=== PATIENT | female | born 1965 | race Caucasian/White ===

== ENCOUNTER 2020-04-05 18:29 | Emergency (ER) | payer MEDICAID, OTHER ==
[~2020-04-05] VITALS: Ht 160 cm; Wt 60.0 kg
--- NOTE | 2020-04-05 18:52 | ED Psychosocial ---
General Chief Complaint: Suicidal Ideation Risk Stated Complaint: SUICIDAL IDEATION Source: patient (GIVES CONVOLUTED INFORMATION) History of Present Illness Date Seen by Provider: Apr 05, 2020 Time Seen by Provider: 18:35 Initial Comments PT ARRIVES VIA EMS PT IS FROM [place] AND IS HOMELESS, ARRIVES WITH A "SERVICE DOG" "EMOTIONAL SUPPORT DOG" PT STATES SHE IS HAVING SUICIDAL THOUGHTS TODAY--"BECAUSE SHE DOESN'T HAVE A PLACE TO STAY BECAUSE OF THE DOG " THOUGHT ABOUT TAKING SOME HEART PILLS AND GOING TO SLEEP"--DENIES ANY ACTUAL ATTEMPT PT HAS NOT TAKEN ANY OF HER MEDICATIONS FOR THE LAST COUPLE OF DAYS--GIVES CONVOLUTED STORY / GIVES NO ACTUAL EXPLANATION TO WHY SHE HAS NOT TAKEN ANY OF HER MEDICATIONS STATES SHE TAKES CARVEDILOL, ENALAPRIL, A STATIN, AND HYDROXYZINE STATES SHE IS "HOMELESS" WAS IN THE [facility] IN [place] FROM FEB 08- MAR 26. INITIALLY STATES SHE IS HOMELESS, THEN STATES THAT THERE HAS BEEN AN APARTMENT FOR HER IN [place] SINCE THIS PAST Wednesday04/01/20, BUT STATES "COULDN'T GET A RIDE THERE" IS UNCLEAR HOW LONG SHE HAS BEEN HERE IN [place], OR WHY SHE IS HERE, WHERE SHE HAS BEEN STAYING AND HOW SHE GOT HERE. --GIVES VERY CONVOLUTED STORY AND DOES NOT GIVE ANY ACTUAL EXPLANATION PT LATER TOLD RN THAT SHE HAD BEEN STAYING WITH SOMEONE HERE IN [place] "BUT WAS ONLY SUPPOSED TO BE HERE FOR ONE DAY" AND TODAY THEY TOLD HER THAT SHE COULDN'T STAY THERE ANY LONGER, BECAUSE OF HER DOG PT DENIES ANY PRIOR PSYCHIATRIC ADMITS, BUT ADMITS TO HISTORY OF DEPRESSION AND ANXIETY, BUT STATES SHE HAS NOT SEEN A PSYCHIATRIST IN OVER A YEAR. PCP: [facility] [place] Allergies and Home Medications Patient Home Medication List Home Medication List Reviewed: Yes Review of Systems Constitutional: no symptoms reported Respiratory: no symptoms reported Cardiovascular: no symptoms reported Gastrointestinal: no symptoms reported Genitourinary: no symptoms reported Control/STD Prophylaxis: Other (HYST/BSO) Musculoskeletal: no symptoms reported Skin: no symptoms reported Psychiatric/Neurological: See HPI Past Hdfwlgp-Knwsqs-Imnxmx Hx Past Med/Social Hx: Reviewed and Corrections made Patient Social History Alcohol Use: Occasionally Uses Recreational Drug Use: Yes ("ALL OF THEM"-METH, COCAINE, THC, HEROIN, OTHERS. DENIES IV USE) Drug of Choice: "ALL OF THEM"-METH, COCAINE, HEROIN, THC, OTHERS. 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 oz. 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 ADVISED PT MULTIPLE TIMES THAT THE DOG WOULD NOT BE ALLOWED TO GO WITH HER TO ANY FACILITY, IT IS NOT A LEGALLY REGISTERED SERVICE DOG. ADVISED PT THAT [facility] WILL BE CONTACTED TO TAKE CARE OF HER DOG WHILE SHE IS HOSPITALIZED. PT IS IN AGREEMENT WITH THIS. PT SLEPT THROUGH MOST OF ER STAY Initial ECG Impression Date: Apr 05, 2020 Initial ECG Impression Time: 18:38 Initial ECG Rate: 94 Initial ECG Rhythm: Normal Sinus Initial ECG Impression: Atrial Fibrillation w/RVR Departure Communication (Admissions) 1909--CALLED [facility]--NO BEDS AVAILABLE 1910--CALLED [facility]-NO BEDS IN [place] OR [place] 1911--CALLED [facility] IN [place]--UNSURE IF THEY HAVE ANY BEDS, THEY WILL CALL BACK 1913--CALLED [facility] IN [place]--MESSAGE LEFT ON MACHINE. 1915--CALLED [facility]--UNSURE IF THEY HAVE BEDS, THEY WILL CALL BACK 1921--[facility] CALLED BACK, AND THEY DO HAVE FEMALE BED AVAILABLE. WILL FAX PT'S INFORMATION WHEN ALL LAB RESULTS ARE BACK. 2029--HAVE SENT ALL PT'S INFORMATION TO [facility] AND VERIFIED RECEIPT OF ALL INFORMATION. 2151--CALLED [facility] FOR UPDATE, THEY NOW REPORT THAT THEY HAVE NOT RECEIVED ANY OF PT'S INFORMATION. RE-CONFIRMED THEIR FAX #, AND WILL RE-FAX ALL OF PT'S INFORMATION. THEY HAVE CONFIRMED THAT THEY STILL HAVE BEDS AVAILABLE. 2204--[facility] CALLED, THEY HAVE NOT RECEIVED ANYTHING. ALL PT'S INFO RMATION RE-FAXED FOR THE 3RD TIME. 2303--[facility] HAS CONFIRMED THAT THEY HAVE RECEIVED ALL REQUIRED PAPERWORK, HAVE NOT REVIEWED IT YET. 2344--[facility] CALLED BACK. THEY CANNOT ACCEPT PT NOW, THEY NO LONGER HAVE ANY AVAILABLE BEDS / ARE NOW FULL. 234--CALLED [facility], THEY WILL CALL BACK FOR BED AVAILABILITY. 2351--CALLED [facility], NUMBER LEFT ON PAGER. 0035--CALLED [facility] IN . HAVE BEDS, BUT WILL NOT ACCEPT PT UNLESS THEY HAVE A NEGATIVE COVID-19 PCR/ SEND OUT TEST. THEY DO NOT ACCEPT RAPID COVID-19 ANTIGEN TESTS. THEREFORE THEY CANNOT ACCEPT PT. 0145--CALLED [facility] IN [place]. THEY HAVE A BED. WILL FAX ALL PT'S INFORMATION. 025--[facility] STAFF IS NOW ON PHONE WITH PT. 0336--[facility] CALLED BACK. THEY HAVE ACCEPTED THE PATIENT, PT HAS BEEN ACCEPTED BY DR. BERMAN. 337--[facility], CONTACTED FOR TRANSPORT. HE WILL BE HERE AT 0700. Impression Primary Impression: Passive suicidal ideations Additional Impressions: Illicit drug use Methamphetamine use Disposition: 65 XFER TO PSYCH HOSP/UNIT Condition: Stable Transfer Transfer Reason: Exceeds level of care Transfer Facility: [facility] Method of Transfer: Private Vehicle ([facility]ing [facility], [facility]) Departure-Patient Inst. Patient Instructions: [facility] MEGHAN JACOME DO Apr 05, 2020 18:51
[2020-04-05 19:10] LABS: BILIRUBIN,URINE NEGATIVE (NEGATIVE); CLARITY,URINE CLEAR; COLOR,URINE YELLOW; GLUCOSE, URINE (UA) NEGATIVE (NEGATIVE); KETONES,URINE NEGATIVE (NEGATIVE); LEUKOCYTE ESTERASE ,URINE NEGATIVE (NEGATIVE); NITRITE,URINE NEGATIVE (NEGATIVE); PH,URINE 5.5 (5-9); PROTEIN,URINE TRACE (NEGATIVE)
[2020-04-05 19:18] LABS: BASOPHILS # (AUTO) 0.1 10^3/uL (0.0-0.1); BASOPHILS % (AUTO) 1 % (0-10); EOSINOPHILS # (AUTO) 0.1 10^3/uL (0.0-0.3); EOSINOPHILS % (AUTO) 1 % (0-10); HEMATOCRIT 43 % (35-52); HEMOGLOBIN 14.2 g/dL (11.5-16.0); LYMPHOCYTES # (AUTO) 2.6 10^3/uL (1.0-4.0); LYMPHOCYTES % (AUTO) 24 % (12-44); MEAN CORPUSCULAR HEMOGLOBIN 31 pg (25-34); MEAN CORPUSCULAR HGB CONC 33 g/dL (32-36); MEAN CORPUSCULAR VOLUME 95 fL (80-99); MEAN PLATELET VOLUME 10.2 fL (9.0-12.2); MONOCYTES # (AUTO) 0.7 10^3/uL (0.0-1.0); MONOCYTES % (AUTO) 6 % (0-12); NEUTROPHILS # (AUTO) 7.3 10^3/uL (1.8-7.8); NEUTROPHILS % (AUTO) 68 % (42-75); PLATELET COUNT 330 10^3/uL (130-400); WHITE BLOOD COUNT 10.8 10^3/uL (4.3-11.0)
[2020-04-05 19:26] LABS: AMPHETAMINE SCREEN, URINE POSITIVE (NEGATIVE); BARBITURATE SCREEN URINE NEGATIVE (NEGATIVE); BENZODIAZEPINES SCREEN URINE NEGATIVE (NEGATIVE); CANNABINOID SCREEN, URINE NEGATIVE (NEGATIVE); COCAINE SCREEN URINE NEGATIVE (NEGATIVE); METHADONE STAT NEGATIVE (NEGATIVE); METHAMPHETAMINE SCREEN URINE S POSITIVE (NEGATIVE); OPIATE SCREEN URINE NEGATIVE (NEGATIVE); OXYCODONE STAT NEGATIVE (NEGATIVE); PROPOXYPHENE STAT NEGATIVE (NEGATIVE); TRICYCLIC ANTIDEPRESSANTS SCRE NEGATIVE (NEGATIVE)
--- NOTE | 2020-04-05 19:30 | NUR ---
COVID SWABS COMPLETED SOME FACILITIES REQUIRE NEGATIVE COVID RESULTS PRIOR TO ACCEPTANCE.
[2020-04-05 19:32] LABS: ALBUMIN 4.8 GM/DL (3.2-4.5); CHLORIDE 102 MMOL/L (98-107); POTASSIUM 4.1 MMOL/L (3.6-5.0); SODIUM 138 MMOL/L (135-145)
[2020-04-05 19:33] LABS: CALCIUM 9.7 MG/DL (8.5-10.1)
[2020-04-05 19:35] LABS: GLUCOSE 94 MG/DL (70-105); TOTAL PROTEIN 7.7 GM/DL (6.4-8.2)
[2020-04-05 19:36] LABS: BILIRUBIN,TOTAL 0.5 MG/DL (0.1-1.0); CARBON DIOXIDE 25 MMOL/L (21-32)
[2020-04-05 19:38] LABS: ALKALINE PHOSPHATASE 78 U/L (40-136); CREATININE SERUM 1.17 MG/DL (0.60-1.30); GFR ESTIMATED 48
[2020-04-05 19:40] LABS: BUN/CREATININE RATIO 11
[2020-04-05 19:41] LABS: SALICYLATE < 5.0 MG/DL (5.0-20.0)
[2020-04-05 19:41] LABS: BACTERIA,URINE FEW /HPF; HYALINE CASTS, URINE 0-2 /LPF; WBC,URINE 0-2 /HPF
[2020-04-05 19:42] LABS: ALANINE AMINOTRANSFERASE 17 U/L (0-55)
[2020-04-05 20:01] LABS: TSH (THYROID ANALYZER) 3.64 UIU/ML (0.35-4.94)
[2020-04-05 20:08] LABS: ACETAMINOPHEN < 10 UG/ML (10-30)
--- NOTE | 2020-04-05 22:01 | NUR ---
[facility] HAS NOT RECEIVED PT CHART FOR REVIEW. CHART FAXED FROM MULTIPLE DIFFERENT FAX MACHINES. MELIDA FROM IT HERE AT THIS TIME TO ASSESS MACHINES.
--- NOTE | 2020-04-05 23:13 | NUR ---
CHANI WITH [facility] CONFIRMED THAT PT CHART HAS BEEN RECEIVED, BUT IS STILL YET TO BE REVIEWED.
--- NOTE | 2020-04-05 23:45 | NUR ---
[facility] REFUSED ACCEPTANCE OF THIS PT, STATES THEY NO LONGER HAVE OPEN FEMALE BEDS. Addendum: 04/06/20 at 0249 by BONNIE GABE BOWEN
--- NOTE | 2020-04-06 02:05 | NUR ---
CHART FAXED TO [facility] FOR REVIEW.
--- NOTE | 2020-04-06 02:50 | NUR ---
[facility] STAFF CALLED AT THIS TIME FOR UPDATED VITAL SIGNS AND REQUEST TO SPEAK WITH PT DIRECTLY.
--- NOTE | 2020-04-06 04:00 | NUR ---
[facility] NOTIFIED OF PT "SUPPORT ANIMAL" DOG AND PT CANNOT TAKE WITH HER TO PSYCH FACILITY. PER [facility], THEY WILL TECHNICAL DIRECTOR DOG AND TAKE TO THEIR [facility] AND WHEN PT IS DISCHARGED FROM PSYCH FACILITY SHE CAN RETRIEVE DOG.
[2020-04-06 07:00] VITALS: BP 126/81
--- NOTE | 2020-04-06 07:05 | NUR ---
[facility] STAFF NOTIFIED PT IS ON WAY TO THEIR FACILITY VIA TRANSPORT WITH [facility] ([facility]).
--- NOTE | 2020-04-06 07:14 | NUR ---
PT DO[place] [facility] AT THIS TIME.
== END 2020-04-06 06:59 ==
LOC: ER 18:34
DX: R45.851 Suicidal ideations (principal); F19.90 Other psychoactive substance use, unspecified, uncomplicated; F15.90 Other stimulant use, unspecified, uncomplicated; F17.210 Nicotine dependence, cigarettes, uncomplicated; Z20.828 Contact with and (suspected) exposure to other viral communicable diseases
CPT/HCPCS: 80053; 80306; 81000; 84443; 84703; 85025; 87088; 93005; 99284; G0480 ×3; U0002; 36415; 80320; 80329; 87635